=== PATIENT | female | born 1970 | race Caucasian/White ===

== ENCOUNTER 2018-06-30 10:34 | Emergency (ER) | payer OTHER ==
--- OUTSIDE RECORDS SUMMARY | 2018-06-30 10:37 | XMS REPORT | Summary of Care ---
Author Author [facility] Organization [facility] Address Unknown Phone Unavailable Encounter HQ Jasmeet(FIN) [phone] Date(s): 08/25/17 - 08/25/17 [facility] [id number] [place] [address]- Encounter Diagnosis Chest pain (Discharge Diagnosis) - 08/25/17 Other chest pain (Final) - 08/31/17 Essential (primary) hypertension (Final) - Hyperlipidemia, unspecified (Final) - Nicotine dependence, unspecified, uncomplicated (Final) - Personal history of other diseases of the circulatory system (Final) - Discharge Disposition: Home or Self Care Attending Physician: Kasey Jones MD Vital Signs 1 2 3 Most recent to oldest [Reference Range]: 177.8 cm (08/25/17 3:24 PM) Height 97.8 DegF (08/25/17 10:05 PM) 98 DegF (08/25/17 7:04 PM) 98.4 DegF (08/25/17 3:24 PM) Temperature Oral [96.4-99.1 DegF] 148/82 mmHg *HI* (08/25/17 10:05 PM) 144/78 mmHg *HI* (08/25/17 9:05 PM) 144/78 mmHg *HI* (08/25/17 8:05 PM) Blood Pressure [90-140/60-90 mmHg] 16 BRMIN (08/25/17 10:05 PM) 18 BRMIN (08/25/17 9:05 PM) 20 BRMIN (08/25/17 8:05 PM) Respiratory Rate [14-20 BRMIN] 74 bpm (08/25/17 7:04 PM) 79 bpm (08/25/17 6:34 PM) 86 bpm (08/25/17 3:24 PM) Peripheral Pulse Rate [60-100 bpm] 81.818 kg (08/25/17 3:24 PM) Weight 25.88 m2 (08/25/17 3:24 PM) Body Mass Index Problem List No data available for this section Allergies, Adverse Reactions, Alerts Substance Reaction Severity Status NKDA Active Medications aspirin 81 mg tablet, enteric coated 81 mg=1 tab, PO, Daily, # 90 tab, 3 Refill(s) Start Date: 08/25/17 Status: Ordered fentaNYL 25 microgram, Route: IVP, ONCE, Dosing Weight 81.818, kg, Priority: STAT, Start date: 08/25/17 16:12:00 PERSONNEL SECURITY SPECIALIST, Stop date: 08/25/17 16:12:00 PERSONNEL SECURITY SPECIALIST Start Date: 08/25/17 Stop Date: 08/25/17 Status: Completed nitroglycerin SL Tab 0.4 mg, Route: SL, ONCE, Dosing Weight 81.818, kg, Start date: 08/25/17 16:15:00 PERSONNEL SECURITY SPECIALIST, Stop date: 08/25/17 16:15:00 PERSONNEL SECURITY SPECIALIST Start Date: 08/25/17 Stop Date: 08/25/17 Status: Completed Saline Flush 0.9% 10 mL, Route: IVP, Drug Form: INJ, Dosing Weight 81.818, kg, PRN, PRN Line Flush , Start date: 08/25/17 15:33:00 PERSONNEL SECURITY SPECIALIST, Duration: 30 day, Stop date: 09/24/17 16:32 :00 CDT Notes: (Same as: BD Posiflush) Start Date: 08/25/17 Stop Date: 08/25/17 Status: Discontinued Results ELECTROLYTES Most recent to 1 2 oldest [Reference Range]: Sodium Lvl [135-145 140 mEq/L mEq/L] (08/25/17 4:02 PM) Potassium Lvl 3.8 mEq/L [3.5-5.1 mEq/L] (08/25/17 4:02 PM) Chloride Lvl [95-109 103 mEq/L mEq/L] (08/25/17 4:02 PM) CO2 [24-32 mEq/L] 25 mEq/L (08/25/17 4:02 PM) AGAP [10.0-20.0 15.8 mEq/L mEq/L] (08/25/17 4:02 PM) CHEM PANEL Most recent to 1 2 oldest [Reference Range]: Creatinine Lvl 0.71 mg/dL [0.50-1.40 mg/dL] (08/25/17 4:02 PM) eGFR See Comment 1 *NA* (08/25/17 4:02 PM) BUN [7-22 mg/dL] 7 mg/dL (08/25/17 4:02 PM) B/C Ratio [6-25] 10 (08/25/17 4:02 PM) Glucose Lvl [70-99 86 mg/dL mg/dL] (08/25/17 4:02 PM) Total Protein 7.8 g/dL [6.4-8.4 g/dL] (08/25/17 4:02 PM) Albumin Lvl [3.5-5.0 3.8 g/dL g/dL] (08/25/17 4:02 PM) Globulin [2.7-4.2 4.0 g/dL g/dL] (08/25/17 4:02 PM) A/G Ratio [0.7-1.6] 1.0 (08/25/17 4:02 PM) Calcium Lvl 8.6 mg/dL [8.5-10.5 mg/dL] (08/25/17 4:02 PM) ALT [0-65 unit/L] 14 unit/L (08/25/17 4:02 PM) AST [0-37 unit/L] 17 unit/L (08/25/17 4:02 PM) Alk Phos [39-136 73 unit/L unit/L] (08/25/17 4:02 PM) Bili Total [0.2-1.3 0.3 mg/dL mg/dL] (08/25/17 4:02 PM) 1Result Comment: No gender is recorded for this patient; estimated GFR cannot be calculated. CARDIAC ENZYMES Most recent to 1 2 oldest [Reference Range]: Total CK [12-191 126 unit/L unit/L] (08/25/17 4:02 PM) CK MB [0.5-3.6 2.5 ng/mL ng/mL] (08/25/17 4:02 PM) CK MB Index 2.0 [0.0-2.5] (08/25/17 4:02 PM) Troponin-I <0.02 ng/mL <0.02 ng/mL [0.00-0.40 ng/mL] (08/25/17 6:34 PM) (08/25/17 4:02 PM) BNP [<=100 pg/mL] 54 pg/mL (08/25/17 5:22 PM) DRUG SCREEN Most recent to 1 2 oldest [Reference Range]: U Amph Scr Positive [Negative] *ABN* (08/25/17 5:22 PM) U Ifeoma Scr Negative [Negative] *NA* (08/25/17 5:22 PM) U Benzodia Scr Negative [Negative] *NA* (08/25/17 5:22 PM) U Cocaine Scr Negative [Negative] *NA* (08/25/17 5:22 PM) U Opiate Scr Positive [Negative] *ABN* (08/25/17 5:22 PM) U Phencyc Scr Negative [Negative] *NA* (08/25/17 5:22 PM) U Cannab Scr Negative [Negative] *NA* (08/25/17 5:22 PM) UDS Note See Note (08/25/17 5:22 PM) TOXICOLOGY Most recent to 1 2 oldest [Reference Range]: Etoh (%) <.003 % *NA* (08/25/17 5:22 PM) Ethanol Lvl <3 mg/dL *NA* (08/25/17 5:22 PM) URINE CHEM Most recent to 1 2 oldest [Reference Range]: U Preg [Negative] Negative (08/25/17 5:22 PM) URINE AND STOOL Most recent to 1 2 oldest [Reference Range]: UA Turbidity [Clear] Clear (08/25/17 5:22 PM) UA Color Ltyellow *NA* (08/25/17 5:22 PM) UA pH [5.0-8.0] 5.0 (08/25/17 5:22 PM) UA Spec Grav 1.008 [<=1.030] (08/25/17 5:22 PM) UA Glucose [Negative Negative mg/dL mg/dL] *NA* (08/25/17 5:22 PM) UA Blood [Negative] Moderate *ABN* (08/25/17 5:22 PM) UA Ketones [Negative Negative mg/dL mg/dL] *NA* (08/25/17 5:22 PM) UA Protein [Negative Negative mg/dL mg/dL] (08/25/17 5:22 PM) UA Urobilinogen <=1.0 mg/dL [0.1-1.0 mg/dL] *NA* (08/25/17 5:22 PM) UA Bili [Negative] Negative *NA* (08/25/17 5:22 PM) UA Leuk Est Trace [Negative] *ABN* (08/25/17 5:22 PM) UA Nitrite Negative [Negative] (08/25/17 5:22 PM) UA WBC [0-5 /HPF] 5 /HPF (08/25/17 5:22 PM) UA RBC [0-2 /HPF] 4 /HPF *HI* (08/25/17 5:22 PM) UA Bacteria [None Occasional /HPF Seen /HPF] *NA* (08/25/17 5:22 PM) UA Sq Epi [Few /LPF] Few /LPF *NA* (08/25/17 5:22 PM) HEMATOLOGY Most recent to 1 2 oldest [Reference Range]: WBC [3.7-10.4 K/CMM] 8.0 K/CMM (08/25/17 4:02 PM) RBC [4.20-5.40 4.95 M/CMM 1 M/CMM] (08/25/17 4:02 PM) Hgb [12.0-16.0 g/dL] 13.9 g/dL 2 (08/25/17 4:02 PM) Hct [36.0-48.0 %] 41.3 % 3 (08/25/17 4:02 PM) MCV [80.0-98.0 fL] 83.4 fL 4 (08/25/17 4:02 PM) MCH [27.0-31.0 pg] 28.0 pg (08/25/17 4:02 PM) MCHC [32.0-36.0 33.6 g/dL g/dL] (08/25/17 4:02 PM) RDW [11.5-14.5 %] 17.9 % *HI* (08/25/17 4:02 PM) MPV [7.4-10.4 fL] 7.7 fL (08/25/17 4:02 PM) Platelet [133-450 367 K/CMM K/CMM] (08/25/17 4:02 PM) Segs [45.0-75.0 %] 66.8 % (08/25/17 4:02 PM) Lymphocytes 26.2 % [20.0-40.0 %] (08/25/17 4:02 PM) Monocytes [2.0-12.0 5.7 % %] (08/25/17 4:02 PM) Eosinophils [0.0-4.0 0.5 % %] (08/25/17 4:02 PM) Basophils [0.0-1.0 0.8 % %] (08/25/17 4:02 PM) Segs-Bands # 5.3 K/CMM [1.5-8.1 K/CMM] (08/25/17 4:02 PM) Lymphocytes # 2.1 K/CMM [1.0-5.5 K/CMM] (08/25/17 4:02 PM) Monocytes # [0.0-0.8 0.4 K/CMM K/CMM] (08/25/17 4:02 PM) Basophils # [0.0-0.2 0.1 K/CMM K/CMM] (08/25/17 4:02 PM) 1Result Comment: Reference range changed due to change in patient's sex at 10:00:48. Normal Low changed from not defined to 4.20. Normal High changed from not defined to 5.40. Result flag changed from not applied to within range. 2Result Comment: Reference range changed due to change in patient's sex at 10:00:48. Normal Low changed from not defined to 12.0. Normal High changed from not defined to 16.0. Result flag changed from not applied to within range. 3Result Comment: Reference range changed due to change in patient's sex at 10:00:48. Normal Low changed from not defined to 36.0. Normal High changed from not defined to 48.0. Result flag changed from not applied to within range. 4Result Comment: Reference range changed due to change in patient's sex at 10:00:48. Normal Low changed from not defined to 80.0. Normal High changed from not defined to 98.0. Result flag changed from not applied to within range. Immunizations No data available for this section Procedures Procedure Date Related Diagnosis Body Site Status Back fusion Completed Tubal ligation Completed Social History Social History Type Response Smoking Status Current every day smoker; Concerns about tobacco use in household: Yes; Exposure to Tobacco Smoke Unable to obtain; Cigarette Smoking Last 365 Days Yes; Reg Smoking Cessation Counseling No entered on: 08/25/17 Assessment and Plan No data available for this section
--- OUTSIDE RECORDS SUMMARY | 2018-06-30 10:37 | XMS REPORT | Continuity of Care Document ---
Author Author [facility] Address Unknown Phone Unavailable Problems Problem Status Onset Date Classification Date Reported Comments Source Other chest pain 09/01/2017 12/01/2017 [facility] Chest pain 08/25/2017 12/01/2017 [facility] CHEST PAIN Active 08/25/2017 [facility] Essential hypertension 12/01/2017 [facility] Hyperlipidemia, unspecified 12/01/2017 [facility] Nicotine dependence, unspecified, uncomplicated 12/01/2017 [facility] Personal history of other diseases of the circulatory system 12/01/2017 [facility] Medications Medication Details Route Status Patient Instructions Ordering Provider Order Date Source Aspirin 81 MG Enteric Coated Tablet 81 mg=1 tab, PO, Daily, # 90 tab, 3 Refill(s) Active 08/26/2017 [facility] Nitroglycerin 0.4 mg, Route: SL, ONCE, Dosing Weight 81.818, kg, Start date: 08/25/17 16:15:00 HOTEL CONCIERGE, Stop date: 08/25/17 16:15:00 HOTEL CONCIERGE Inactive 08/25/2017 [facility] Fentanyl 25 microgram, Route: IVP, ONCE, Dosing Weight 81.818, kg, Priority: STAT, Start date: 08/25/17 16:12:00 HOTEL CONCIERGE, Stop date: 08/25/17 16:12:00 HOTEL CONCIERGE Inactive 08/25/2017 [facility] Saline Flush 0.9% 10 mL, Route: IVP, Drug Form: INJ, Dosing Weight 81.818, kg, PRN, PRN Line Flush, Start date: 08/25/17 15:33:00 HOTEL CONCIERGE, Duration: 30 day, Stop date: 09/24/17 16:32:00 CDTNotes: (Same as: BD Posiflush) Inactive 08/25/2017 [facility] Allergies, Adverse Reactions, Alerts Substance Category Reaction Severity Reaction type Status Date Reported Comments Source Immunizations Immunization Date Given Site Status Last Updated Comments Source Results Order Name Results Value Reference Range Date Interpretation Comments Source CARDIAC ENZYMES Troponin-I null 0.00 - 0.40 08/26/2017 [facility] CARDIAC ENZYMES BNP 54 pg/mL <=100 pg/mL 08/25/2017 [facility] DRUG SCREEN U Ifeoma Scr Negative *NA* (08/25/17 5:22 PM) Negative 08/25/2017 [facility] DRUG SCREEN U Amph Scr Positive *ABN* (08/25/17 5:22 PM) Negative 08/25/2017 [facility] DRUG SCREEN U Opiate Scr Positive *ABN* (08/25/17 5:22 PM) Negative 08/25/2017 [facility] DRUG SCREEN U Cocaine Scr Negative *NA* (08/25/17 5:22 PM) Negative 08/25/2017 [facility] DRUG SCREEN U Phencyc Scr Negative *NA* (08/25/17 5:22 PM) Negative 08/25/2017 [facility] DRUG SCREEN U Benzodia Scr Negative *NA* (08/25/17 5:22 PM) Negative 08/25/2017 [facility] DRUG SCREEN U Cannab Scr Negative *NA* (08/25/17 5:22 PM) Negative 08/25/2017 [facility] DRUG SCREEN UDS Note See Note (08/25/17 5:22 PM) 08/25/2017 [facility] TOXICOLOGY Etoh (%) null 08/25/2017 [facility] TOXICOLOGY Ethanol Lvl null 08/25/2017 [facility] URINE AND STOOL UA Urobilinogen <=1.0 mg/dL 0.1 - 1.0 08/25/2017 [facility] URINE AND STOOL UA Color Ltyellow 08/25/2017 [facility] URINE AND STOOL UA WBC 5 /HPF 0 - 5 08/25/2017 [facility] URINE AND STOOL UA RBC 4 /HPF 0 - 2 08/25/2017 [facility] URINE AND STOOL UA Bacteria Occasional /HPF None Seen /HPF 08/25/2017 [facility] URINE AND STOOL UA Blood Moderate *ABN* (08/25/17 5:22 PM) Negative 08/25/2017 [facility] URINE AND STOOL UA Nitrite Negative (08/25/17 5:22 PM) Negative 08/25/2017 [facility] URINE AND STOOL UA Leuk Est Trace *ABN* (08/25/17 5:22 PM) Negative 08/25/2017 [facility] URINE AND STOOL UA Sq Epi Few /LPF Few /LPF 08/25/2017 [facility] URINE AND STOOL UA Protein Negative mg/dL Negative mg/dL 08/25/2017 [facility] URINE AND STOOL UA Glucose Negative mg/dL Negative mg/dL 08/25/2017 [facility] URINE AND STOOL UA Ketones Negative mg/dL Negative mg/dL 08/25/2017 [facility] URINE AND STOOL UA Bili Negative *NA* (08/25/17 5:22 PM) Negative 08/25/2017 [facility] URINE AND STOOL UA pH 5.0 5.0 - 8.0 08/25/2017 [facility] URINE AND STOOL UA Spec Grav 1.008 <=1.030 08/25/2017 [facility] URINE AND STOOL UA Turbidity Clear (08/25/17 5:22 PM) Clear 08/25/2017 [facility] URINE CHEM U Preg Negative (08/25/17 5:22 PM) Negative 08/25/2017 [facility] CARDIAC ENZYMES CK MB 2.5 ng/mL 0.5 - 3.6 08/25/2017 [facility] CARDIAC ENZYMES Troponin-I null 0.00 - 0.40 08/25/2017 [facility] CARDIAC ENZYMES Total CK 126 unit/L 12 - 191 08/25/2017 [facility] CARDIAC ENZYMES CK MB Index 2.0 0.0 - 2.5 08/25/2017 [facility] CHEM PANEL eGFR See Comment 08/25/2017 Result Comment: No gender is recorded for this patient; estimated GFR cannot be calculated. [facility] CHEM PANEL Alk Phos 73 unit/L 39 - 136 08/25/2017 [facility] CHEM PANEL Bili Total 0.3 mg/dL 0.2 - 1.3 08/25/2017 [facility] CHEM PANEL Calcium Lvl 8.6 mg/dL 8.5 - 10.5 08/25/2017 [facility] CHEM PANEL Total Protein 7.8 g/dL 6.4 - 8.4 08/25/2017 [facility] CHEM PANEL B/C Ratio 10 6 - 25 08/25/2017 [facility] CHEM PANEL Globulin 4.0 g/dL 2.7 - 4.2 08/25/2017 [facility] CHEM PANEL Albumin Lvl 3.8 g/dL 3.5 - 5.0 08/25/2017 [facility] CHEM PANEL AST 17 unit/L 0 - 37 08/25/2017 [facility] CHEM PANEL ALT 14 unit/L 0 - 65 08/25/2017 [facility] CHEM PANEL A/G Ratio 1.0 0.7 - 1.6 08/25/2017 [facility] CHEM PANEL Glucose Lvl 86 mg/dL 70 - 99 08/25/2017 [facility] CHEM PANEL Creatinine Lvl 0.71 mg/dL 0.50 - 1.40 08/25/2017 [facility] CHEM PANEL BUN 7 mg/dL 7 - 22 08/25/2017 [facility] CHEM PANEL Sodium Lvl 140 meq/L 135 - 145 08/25/2017 [facility] CHEM PANEL Potassium Lvl 3.8 meq/L 3.5 - 5.1 08/25/2017 [facility] CHEM PANEL CO2 25 meq/L 24 - 32 08/25/2017 [facility] CHEM PANEL Chloride Lvl 103 meq/L 95 - 109 08/25/2017 [facility] CHEM PANEL AGAP 15.8 meq/L 10.0 - 20.0 08/25/[address] [facility] Platelet 367 K/CMM 133 - 450 08/25/[address] [facility] MPV 7.7 fL 7.4 - 10.4 08/25/[address] [facility] MCHC 33.6 g/dL 32.0 - 36.0 08/25/[address] [facility] RDW 17.9 % 11.5 - 14.5 08/25/[address] [facility] Hct 41.3 % 36.0 - 48.0 08/25/2017 Result Comment: Reference range changed due to change in patient's sex at 10:00:48. Normal Low changed from not defined to 36.0. Normal High changed from not defined to 48.0. Result flag changed from not applied to within range. [facility] MCH 28.0 pg 27.0 - 31.0 08/25/[address] [facility] MCV 83.4 fL 80.0 - 98.0 08/25/2017 Result Comment: Reference range changed due to change in patient's sex at 10:00:48. Normal Low changed from not defined to 80.0. Normal High changed from not defined to 98.0. Result flag changed from not applied to within range. [facility] WBC 8.0 K/CMM 3.7 - 10.4 08/25/[address] [facility] RBC 4.95 M/CMM 4.20 - 5.40 08/25/2017 Result Comment: Reference range changed due to change in patient's sex at 10:00:48. Normal Low changed from not defined to 4.20. Normal High changed from not defined to 5.40. Result flag changed from not applied to within range. [facility] HEMATOLOGY Hgb 13.9 g/dL 12.0 - 16.0 08/25/2017 Result Comment: Reference range changed due to change in patient's sex at 10:00:48. Normal Low changed from not defined to 12.0. Normal High changed from not defined to 16.0. Result flag changed from not applied to within range. [facility] HEMATOLOGY Segs-Bands # 5.3 K/CMM 1.5 - 8.1 08/25/2017 [facility] HEMATOLOGY Lymphocytes # 2.1 K/CMM 1.0 - 5.5 08/25/2017 [facility] HEMATOLOGY Monocytes # 0.4 K/CMM 0.0 - 0.8 08/25/2017 [facility] HEMATOLOGY Basophils # 0.1 K/CMM 0.0 - 0.2 08/25/2017 [facility] HEMATOLOGY Eosinophils 0.5 % 0.0 - 4.0 08/25/2017 [facility] HEMATOLOGY Basophils 0.8 % 0.0 - 1.0 08/25/2017 [facility] HEMATOLOGY Segs 66.8 % 45.0 - 75.0 08/25/[address] [facility] Lymphocytes 26.2 % 20.0 - 40.0 08/25/[address] [facility] Monocytes 5.7 % 2.0 - 12.0 08/25/2017 [facility] Chest 1view DX Chest 1view DX Clinical Indication: Chest pain; Comparison: None FINDINGS: AP chest radiographs shows normal lung volumes without interstitial or airspace opacities, pleural effusions or pneumothorax. The heart size and pulmonary vasculature are normal. The trachea is midline. There are no clinically significant osseous abnormalities noted. IMPRESSION: No chest radiographic evidence of acute cardiopulmonary disease. SL: [id number] 08/25/2017 - - Read by: Prasanth Gutierrez MD Dictated Date/time: 08/25/17 16:38 Electronically Signed by: Prasanth Gutierrez MD 08/25/17 16:38 FINAL REPORT [facility] Vital Signs Vital Sign Value Date Comments Source Temperature Oral (F) 97.8 F 08/26/2017 [facility] Systolic (mm Hg) 148 08/26/2017 [facility] Diastolic (mm Hg) 82 08/26/2017 [facility] Respitory Rate 16 08/26/2017 [facility] Respitory Rate 18 08/26/2017 [facility] Systolic (mm Hg) 144 08/26/2017 [facility] Diastolic (mm Hg) 78 08/26/2017 [facility] Respitory Rate 20 08/26/2017 [facility] Systolic (mm Hg) 144 08/26/2017 [facility] Diastolic (mm Hg) 78 08/26/2017 [facility] Temperature Oral (F) 98 F 08/26/2017 [facility] Heart Rate 74 08/26/2017 [facility] Heart Rate 79 08/26/2017 [facility] Temperature Oral (F) 98.4 F 08/25/2017 [facility] Weight 81.818 08/25/2017 [facility] Heart Rate 86 08/25/2017 [facility] BMI Calculated 25.88 08/25/2017 [facility] Height 177.8 cm 08/25/2017 [facility] Encounters Location Location Details Encounter Type Encounter Number Reason For Visit Attending Provider ADM Date DC Date Status Source [facility] [id number] Kasey Jones 08/25/2017 08/26/2017 [facility] Procedures Procedure Code Date Perfomer Comments Source Back fusion [id number] [facility] Tubal ligation [id number] [facility]
[2018-06-30] MEDS ORDERED: IPRATROPIUM BROMIDE 0.02% 2.5 ML NEB NEB STA (10:44)
[2018-06-30] MEDS ORDERED: ALBUTEROL SULF 0.083% NEB SOLN 3 ML NEB NEB STA (10:44)
[2018-06-30] MEDS ORDERED: CEFTRIAXONE SOD 1 GM/NS 50 ML 50 ML IV STA (10:44)
[2018-06-30] MEDS ORDERED: METHYLPREDNISOLONE SOD SUCC 125 MG/2ML VIAL IV STA (10:44)
[2018-06-30] MEDS ORDERED: ACETAMINOPHEN/CODEINE ELIX 120-12 MG/5 ML UDC PO ONE (10:45)
[2018-06-30 11:20] LABS: BASOPHILS % 0.2 % (0.0-1.0); EOSINOPHILS # (AUTO) 0.1 (0.0-0.4); EOSINOPHILS % 1.1 % (0.0-6.0); HEMATOCRIT 38.4 % (34.2-44.1); HEMOGLOBIN 12.6 g/dL (12.0-16.0); LYMPHOCYTES # (AUTO) 2.3 (1.0-3.2); MEAN CORPUSCULAR HEMOGLOBIN 28.2 pg (28-32); MEAN CORPUSCULAR HGB CONC 32.8 g/dL (31-35); MEAN CORPUSCULAR VOLUME 85.9 fL (81-99); MONOCYTES # (AUTO) 0.7 (0.2-0.8); MONOCYTES % 7.4 % (4.4-11.3); NEUTROPHILS # (AUTO) 6.1 (2.1-6.9); NEUTROPHILS % 65.9 % (38.7-80.0); PLATELET COUNT 382 x10e3/uL (140-360); RED BLOOD COUNT 4.47 x10e6/uL (3.6-5.1)
[2018-06-30 11:25] LABS: PREGNANCY TEST, URINE NEGATIVE (NEGATIVE)
[2018-06-30 11:26] LABS: BILIRUBIN,URINE NEGATIVE (NEGATIVE); CLARITY,URINE SL CLOUDY (CLEAR); COLOR,URINE YELLOW (YELLOW); KETONES,URINE NEGATIVE (NEGATIVE); LEUKOCYTE ESTERASE ,URINE NEGATIVE (NEGATIVE); NITRITE,URINE NEGATIVE (NEGATIVE); PROTEIN,URINE DIPSTICK NEGATIVE (NEGATIVE); URINE UROBILINOGEN 0.2 mg/dL (0.2 - 1)
[2018-06-30 11:38] LABS: ALANINE AMINOTRANSFERASE 19 IU/L (0-55); ALBUMIN 3.3 g/dL (3.5-5.0); ALBUMIN/GLOBULIN RATIO 0.9 (0.8-2.0); ALKALINE PHOSPHATASE 65 IU/L (40-150); ANION GAP 15.5 mmol/L (8-16); BLOOD UREA NITROGEN < 5 mg/dL (7-26); CALCIUM 9.3 mg/dL (8.4-10.2); CARBON DIOXIDE 28 mmol/L (22-29); CHLORIDE 100 mmol/L (98-107); CREATININE, SERUM 0.69 mg/dL (0.57-1.11); EST GLOMERULAR FILTRATION RATE > 60 ML/MIN (60-); GLUCOSE 98 mg/dL (74-118); POTASSIUM 3.5 mmol/L (3.5-5.1); SODIUM 140 mmol/L (136-145)
[2018-06-30 11:42] LABS: BUN/CREATININE RATIO 7 (6-25); INFLUENZAE A&B ANTIGEN (RAPID) NEGATIVE (NEGATIVE); STREPTOCOCCUS GRP A ANTIGEN NEGATIVE (NEGATIVE)
[2018-06-30 12:08] LABS: BACTERIA,URINE RARE /HPF; EPITHELIAL CELLS,URINE FEW /LPF; RBC,URINE 0-5 /HPF (0-5)
[2018-06-30] MEDS ORDERED: ALBUTEROL SULF 0.083% NEB SOLN 3 ML NEB ONE (12:11)
--- NOTE | 2018-06-30 12:20 | Diagnostic Imaging Report ---
EXAMINATION: CHEST 2 VIEWS INDICATION: Cough, query pneumonia COMPARISON: None FINDINGS: TUBES and LINES: Catheters project over the midline cervical and lower thoracic spine. LUNGS: Lungs are moderately inflated. There are patchy consolidative opacities in the bilateral mid and lower lung zones. There is bronchial wall thickening, consistent with bronchitis. No evidence of pulmonary edema. PLEURA: No pleural effusion or pneumothorax. HEART AND MEDIASTINUM: The cardiomediastinal silhouette is unremarkable. BONES AND SOFT TISSUES: No acute bony findings. Partially seen findings of cervical spine fixation hardware. UPPER ABDOMEN: No free air under the diaphragm. IMPRESSION: Patchy bilateral mid and lower lung zone consolidation, likely multifocal pneumonia in this patient with cough. Follow chest radiograph in 6-8 weeks is suggested to assess for resolution. Signed by: Dr. Kailey Pelayo MD on 06/30/2018 12:16 PM
[2018-06-30] MEDS ORDERED: SODIUM CHLORIDE 0.9% 1000ML 1,000 ML IV SCH (12:29)
[2018-06-30] MEDS ORDERED: AZITHROMYCIN 500MG/NS 250 ML 250 ML IV ONE (12:30)
[2018-06-30] MEDS ORDERED: ALBUTEROL SULF 0.083% NEB SOLN 3 ML NEB NEB SCH (12:30)
[2018-06-30] MEDS ORDERED: CEFTRIAXONE SOD 1 GRAM/0.9% SOD CHL 50ML BAG IV SCH (12:30)
[2018-06-30] MEDS ORDERED: AZITHROMYCIN 500MG/SOD CHL 0.9% 250ML BAG IV SCH (12:30)
[2018-06-30] MEDS ORDERED: NICOTINE 14 MG/EA PATCH TOP SCH (12:30)
[2018-06-30] MEDS ORDERED: IPRATROPIUM BROMIDE 0.02% 2.5 ML NEB NEB SCH ×2 (13:00→18:00)
[2018-06-30] MEDS ORDERED: AZITHROMYCIN 500MG/NS 250 ML 250 ML IV SCH (13:00)
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
[2018-07-01] MEDS ORDERED: CEFTRIAXONE SOD 1 GM/NS 50 ML 50 ML IV SCH (13:00)
== END 2018-06-30 13:33 | disposition home or self-care (01) ==
LOC: ER 10:34
DX: R05 Cough (principal); R07.89 Other chest pain; J15.9 Unspecified bacterial pneumonia; I10 Essential (primary) hypertension; F41.9 Anxiety disorder, unspecified; G89.29 Other chronic pain
CPT/HCPCS: 36415; 71046; 80053; 81001; 81025; 83518; 85025; 87070; 87086; 87400; 99284; J0696; J2930